=== PATIENT | male | born 1975 | race Caucasian/White ===

== ENCOUNTER 2017-11-21 13:25 | Emergency (ER) | payer OTHER ==
--- NOTE | 2017-11-21 15:25 | Ultrasound Report ---
Reason: LLE swelling, recent travel Procedure Date: 11/21/2017 Accession Number: [id number] / [id number] Procedure: US - Duplex Ext Veins Left CPT Code: FULL RESULT: EXAM: LEFT LOWER EXTREMITY VENOUS ULTRASOUND EXAM DATE: 11/21/2017 03:06 PM. CLINICAL HISTORY: Left leg pain and swelling, recent travel. COMPARISON: None. TECHNIQUE: Real-time sonographic vascular imaging was performed by the medical device sales consultant through the lower extremity utilizing both color-flow and Doppler spectral analysis. Multiple client service representative static images were saved for review. FINDINGS: Common Femoral Vein (CFV): Normal. CFV-GSV Junction: Normal. Profunda Femoral Vein (PFV): Normal. Femoral Vein (FV) Prox: Normal. Femoral Vein (FV) Mid: Normal. Femoral Vein (FV) Dist: Normal. Popliteal Vein: Normal. Posterior Tibial Veins: Normal. Peroneal Veins: Normal. Contralateral Side CFV: Normal. Other: There is superficial venous thrombosis of the great saphenous vein from the mid calf to the left knee. IMPRESSION: No evidence for deep venous thrombosis. Occlusive thrombosis of the left great saphenous vein to the level of the knee. While this is a superficial thrombosis; it is sometimes clinically treated as a DVT equivalent in the great saphenous vein. RADIA
[2017-11-21] MEDS ORDERED: RIVAROXABAN 15 MG TABLET PO STA (16:09)
--- NOTE | 2017-11-21 16:11 | ED Physician Documentation ---
History of Present Illness - Stated complaint Stated Complaint: LF CALF PX - Chief complaint Chief Complaint: Ext Problem - History obtained from History obtained from: Patient - History of Present Illness Timing: How many days ago (several) Pain level max: 4 Pain level now: 4 Improved by: rest Worsened by: walking - Additonal information Additional information: Patient with LLE swelling for the past several days. 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 sent by PCP for US of the LLE for poss DVT? Review of Systems Constitutional: denies: Fever, Chills Cardiac: denies: Chest pain / pressure, Palpitations Skin: denies: Rash Musculoskeletal: denies: Neck pain, Back pain Neurologic: denies: Headache PD PAST MEDICAL HISTORY - Past Medical History Past Medical History: No - Present Medications Home Medications: Ambulatory Orders Medication Instructions Recorded Confirmed Rivaroxaban [Xarelto] 15 mg PO BID #42 tablet 11/21/17 - Allergies Allergies/Adverse Reactions: Allergies Allergy/AdvReac Type Severity Reaction Status Date / Time No Known Drug Allergies Allergy Verified 11/21/17 13:42 - Social History Does the pt smoke?: No Smoking Status: Never smoker PD ED PE NORMAL - Vitals Vital signs reviewed: Yes - General General: Alert and oriented X 3, No acute distress - HEENT HEENT: Moist mucous membranes - Neck Neck: Supple, no meningeal sign - Cardiac Cardiac: RRR - Respiratory Respiratory: No respiratory distress, Clear bilaterally - Derm Derm: Warm and dry - Extremities Extremities: Other (L LE - TTP over medial/posterior aspect of the calf. NVI. Mild swelling.) - Neuro Neuro: Alert and oriented X 3 - Psych Psych: Normal mood, Normal affect Results - Vitals Vitals: Vital Signs - 24 hr 11/21/17 11/21/17 13:37 16:28 Temperature 36.4 C L Heart Rate 62 58 L Respiratory 16 16 Rate Blood Pressure 117/68 132/85 H O2 Saturation 95 95 Oxygen O2 Source Room air - Rads (name of study) Duplex ultrasound left lower extremity Radiology: Prelim report reviewed, EMP read contemporaneously, See rad report ( No evidence for deep venous thrombosis. Occlusive thrombosis of the left great saphenous vein to the level of the knee. While this is a superficial thrombosis ; it is sometimes clinically treated as a DVT equivalent in the great saphenous vein. ) PD MEDICAL DECISION MAKING - ED course Complexity details: reviewed results, re-evaluated patient, considered differential, d/w patient, d/w PMD ED course: Patient is a 42-year-old male who presents to the emergency right left calf pain and swelling. He has an occlusive thrombus of the left greater saphenous vein to the level of the knee. Discussed with his primary care physician and they who would like to treat this as a DVT. We will place him on Xarelto. Discussed with the patient risks and benefits of anticoagulation as well as of Xarelto versus Lovenox and warfarin. He chooses Xarelto at this time. Patient counseled regarding signs and symptoms for which I believe and urgent re- evaluation would be necessary. Patient with good understanding of and agreement to plan and is comfortable going home at this time This document was made in part using voice recognition software. While efforts are made to proofread this document, sound alike and grammatical errors may occur. - Sepsis Event Vital Signs: Vital Signs - 24 hr 11/21/17 11/21/17 13:37 16:28 Temperature 36.4 C L Heart Rate 62 58 L Respiratory 16 16 Rate Blood Pressure 117/68 132/85 H O2 Saturation 95 95 Oxygen O2 Source Room air Departure - Departure Disposition: 01 Home, Self Care Clinical Impression: DVT (deep venous thrombosis) Qualifiers: DVT location: lower extremity Affected thrombotic vein of extremity: unspecified vein of extremity Chronicity: acute Laterality: right Qualified Code (s): I82.401 - Acute embolism and thrombosis of unspecified deep veins of right lower extremity Condition: Good Instructions: ED DVT Follow-Up: Jr Celeste MD [Primary Care Provider] - Within 1 week Prescriptions: Rivaroxaban [Xarelto] 15 mg PO BID #42 tablet Comments: Return if you worsen. You can use Motrin or Tylenol as needed for pain. Return especially if you notice bleeding in your stools. Also if you are in any sort of trauma or sustain a head injury even if it is minor as this may cause bleeding because of the blood thinners that you are taking. Discharge Date/Time: 11/21/17 16:38
[2017-11-21 16:30] VITALS: BP 132/85
== END 2017-11-21 16:38 | disposition home or self-care (01) ==
LOC: ED 13:25
DX: I82.812 Embolism and thrombosis of superficial veins of left lower extremity (principal)
CPT/HCPCS: 93971; 99283; A9270